=== PATIENT | female | born 1940 | race Caucasian/White ===

== ENCOUNTER → 2017-03-22 | Outpatient (CLI) | payer OTHER, BC ==
[~2017-03-22] MED LIST: AMBEREN; ASPIRIN EC81 M1 PO; CALCIUM PO; CALTRATE-600 W1 EACH PO; CLONAZEPAM 0.50.5 M1 PO; CLONAZEPAM 1 MG1 M1 PO; COLACE 100 MG100 MG PO; FISH OIL 1,0001 EAC5 PO; FISHOIL PO; FLEXERIL PO; FOLIC ACID0.4 MG PO; FOLIC ACID1 MG PO; HIZENTRA1 GM/5 ML SUBQ; HYDROCODON-ACE1 EAC5 PO; HYDROXYCHLOROQ200 M1 PO; LEVOTHYROXIN0.025 MG PO; LEVOTHYROXINE0.05 MG PO; LOMOTIL TABLET1 EACH; LOMOTIL TABLET1 EACH PO; LORATADINE PO; LOVASTAT20 PO; METHOTREXATE 22.5 M1 PO; MOBIC15 MG PO; MOBIC7.5 M1 PO; MOBIC7.5 MG PO; NORCO 5-325 TA1 EACH PO; NORFLEX100 MG PO; OCUVITE TABLET1 EAC1 PO; OMEPRAZOLE20 M2 PO; OXYCONTIN10 M1 PO; PREDNISONE 5 MG5 M1 PO; PREMARIN0.3 MG; RANITIDINE 150150 MG PO; RESTASIS1 EACH OPHTHALMIC; RHINOCORT AQUA8.6 GM; THERA-M CAPLET1 EACH PO; TOPROL XL25 MG PO; TRAMADOL 50 MG50 MG PO; TREXALL15 MG PO; ZYRTEC10 M2 PO
[2017-03-22 12:07] LABS: HEMATOCRIT 46.6 % (37.0-47.0); MCH 33.5 pg (26.0-34.0); MCHC 34.3 g/dL (28.0-37.0); MCV 97.5 fL (80.0-100.0); PLATELET COUNT 245 thou/uL (150-400); RBC 4.78 mil/uL (4.20-5.00); RDW 13.4 % (10.5-14.5)
[2017-03-22 12:08] LABS: MANUAL DIFF YES
[2017-03-22 12:19] LABS: ALBUMIN 4.2 g/dL (3.4-5.0); ALKALINE PHOSPHATASE 56 U/L (46-116); ANION GAP 10 mmol/L (7-16); BUN 19 mg/dL (7-18); CALCIUM 10.4 mg/dL (8.5-10.1); CHLORIDE 101 mmol/L (98-107); CO2 28 mmol/L (21-32); CREATININE 0.8 mg/dL (0.6-1.0); GLUCOSE 104 mg/dL (74-106); MAGNESIUM 2.1 mg/dL (1.8-2.4); POTASSIUM 4.5 mmol/L (3.5-5.1); SGOT 34 U/L (15-37); SGPT 45 U/L (30-65); SODIUM 139 mmol/L (136-145); TOTAL BILIRUBIN 0.6 mg/dL (<0.1-1.0); TOTAL PROTEIN 7.8 g/dL (6.4-8.2)
[2017-03-22 12:44] LABS: TSH 1.129 uIU/mL (0.358-3.740)
[2017-03-22 13:58] LABS: ABSOLUTE NEUTROPHILS 5.7 thou/uL (1.4-8.2); PLATELET ESTIMATE NORMAL; TOTAL CELL COUNT 100
== END ==
LOC: SEN 08:54
PROVIDERS: Internal Medicine Geriatric Medicine
DX: K52.9 Noninfective gastroenteritis and colitis, unspecified (principal); R29.6 Repeated falls; R26.9 Unspecified abnormalities of gait and mobility

== ENCOUNTER → 2017-06-28 | Outpatient (CLI) | payer OTHER, BC | LOC: RAD 10:43 | DX: R05 Cough (principal) ==

== ENCOUNTER → 2017-11-10 | Outpatient (CLI) | payer OTHER, BC | LOC: NUC 07:39 | DX: I20.9 Angina pectoris, unspecified (principal); R06.09 Other forms of dyspnea; I10 Essential (primary) hypertension ==

== ENCOUNTER 2019-06-20 23:08 | Emergency (ER) | payer OTHER, BC ==
[~2019-06-20] VITALS: Ht 154.9 cm; Wt 70.8 kg
[2019-06-21] MEDS ORDERED: FOLIC ACID1 MG PO (00:01)
[2019-06-21] MEDS ORDERED: PREDNISONE 5 MG5 M1 PO (00:02)
[2019-06-21] MEDS ORDERED: LISINOPRIL5 MG PO (00:02)
[2019-06-21] MEDS ORDERED: ZYRTEC10 M5 PO (00:05)
[2019-06-21] MEDS ORDERED: TIZANIDINE HCL 22 M1 PO (00:05)
[2019-06-21] MEDS ORDERED: AZATHIOPRINE50 MG PO (00:05)
[2019-06-21] MEDS ORDERED: SINGULAIR 10 MG10 M1 PO (00:05)
[2019-06-21] MEDS ORDERED: VITAMIN C500 MG PO (00:06)
[2019-06-21] MEDS ORDERED: CURCUMIN10 GM PO (00:06)
[2019-06-21] MEDS ORDERED: METHOTREXA25 MG/1 M4 SUBQ (00:07)
[2019-06-21] MEDS ORDERED: RESTASIS1 EACH OPHTHALMIC (00:07)
[2019-06-21 00:40] VITALS: BP 221/98
== END 2019-06-21 00:40 | disposition home or self-care (01) ==
LOC: ER 23:08
DX: M25.512 Pain in left shoulder (principal); R07.81 Pleurodynia; M85.80 Other specified disorders of bone density and structure, unspecified site; Z90.710 Acquired absence of both cervix and uterus; Z87.891 Personal history of nicotine dependence; Z90.49 Acquired absence of other specified parts of digestive tract

== ENCOUNTER 2020-07-23 20:17 | Emergency (ER) | payer OTHER, BC ==
[~2020-07-23] VITALS: Ht 152.4 cm; Wt 68.0 kg
--- NOTE | ~2020-07-23 | EMS ---
[address] [address] EMS Patient Care Report Name: ARTURO CONNOLLY Room #: REG RIGOBERTO Dean#: [id number] Admission: 07/23/20 Attend Phys: Discharge: Date of : 38 Report #: [id number] THIS REPORT FOR: //name// Report Transmitted: 07/23/2020 20:22 EMS Care Summary [facility] MED-ACT Incident [id number] @ 07/23/2020 19:26 Incident Location [address] [place] [address] Patient ANNY CATHLEEN Female, 79 Years 1940 Patient Address [address] [place] [address] Patient History Hypertension (HTN),Hypothyroidism, Patient Allergies No known allergies, Patient Medications Levothyroxine, Prednisone, Lisinopril, Chief Complaint wrist pain Disposition Transported No Lights/[place] Reason Falls Transported To [facility] Narrative Dispatched to a [facility] community for a 79 yr female with a complaint of falls. Arrived on scene to find the pt on the floor in her kitchen OPFD [address] [address] EMS Patient Care Report Name: ARTURO CONNOLLY Room #: REG Dianne#: [id number] Admission: 07/23/20 Attend Phys: Discharge: Date of : 38 Report #: [id number] personnel providing care. Pt states that she slipped and fell hitting the right side of her head on the counter and then injuring her right wrist trying to break her fall. Pt has some swelling and deformity to her right wrist, pt rates her pain a 9 out of 10 in her wrist. No swelling was noted on the side of the pt's head. Pt denies any loss of consciousness or further injury. Pt does not take any blood thinners. IV was placed and fentanyl was given for pain control. Pt was moved to a sitting position and a sling was placed to support pt's wrist. Pt was assisted to a standing position and then seated on the cot. Pt was placed in a position of comfort and secured. Monitored pt vitals through out transport. Additional 50 MCG of fentanyl (total of 100 MCG) given for pain control. Pt rates her pain a 5 out of 10 on arrival at the ED. Pt taken to room 5 on arrival at the ED, verbal report given to chief of staff doctor, pt vitals stable. Initial Vitals @19:40P: 67,R: 18,BP: 157/71,Pain: 8/10,GCS: 15,Temp: 97.4F,SpO2: 96,Revised Trauma: 12, @20:10P: 64,R: 18,BP: 154/84,Pain: 4/10,GCS: 15,SpO2: 96,Revised Trauma: 12, @20:00P: 64,R: 8,BP: 174/90,Pain: 4/10,GCS: 15,SpO2: 97,Revised Trauma: 10, Assessments @19:47MENTAL:Person Oriented,Time Oriented,Event Oriented,Place Oriented,SKIN:HEENT:Head/Face: No Abnormalities,LUNG SOUNDS:General: No Abnormalities,ABDOMEN:General: No Abnormalities,PELVIS//GI:No Abnormalities,EXTREMITIES:Left Arm: No Abnormalities,Right Arm: No Abnormalities,Left Leg: No Abnormalities,Right Leg: No Abnormalities,PULSE:NEURO:No Abnormalities, Impression Injury Procedures @19:48Fentanyl - 50 Micrograms (mcg) - Intravenous (IV)Response: Improved@19:42ALS AssessmentResponse: UnchangedSucceeded@19:44Saline Lock 10cc (20 ga) Site: Antecubital-LeftResponse: UnchangedSucceeded@20:01Fentanyl - 50 Micrograms (mcg) - Intravenous (IV)Response: Improved Timeline 19:25,Call Received 19:25,Psap Call 19:26,Dispatched 19:27,En Route 19:34,On Scene 19:38,At Patient 19:40,BP: 157/71 M,PULSE: 67,RR: 18 R,SPO2: 96 Ox,ETCO2: ,BG: ,PAIN: 8,GCS: 15, [address] [address] EMS Patient Care Report Name: ARTRUO CONNOLLY Room #: REG M.R.#: [id number] Admission: 07/23/20 Attend Phys: Discharge: Date of : 38 Report #: [id number] 19:42,ALS Assessment,Response: UnchangedSucceeded, 19:44,Saline Lock 10cc 20 ga Site: Antecubital-Left,Response: UnchangedSucceeded, 19:48,Fentanyl - 50 Micrograms (mcg) - Intravenous (IV),Response: Improved 20:00,BP: 174/90 M,PULSE: 64,RR: 8 R,SPO2: 97 Ox,ETCO2: ,BG: ,PAIN: 4,GCS: 15, 20:01,Fentanyl - 50 Micrograms (mcg) - Intravenous (IV),Response: Improved 20:03,Depart Scene 20:10,BP: 154/84 M,PULSE: 64,RR: 18 R,SPO2: 96 Ox,ETCO2: ,BG: ,PAIN: 4,GCS: 15, 20:12,At Destination 20:55,Call Closed Disclaimer v1.1 Copyright 2020 [employer] This EMS Care Summary contains data elements from the applicable legal record (which may be displayed differently). It is designed to provide pertinent information for the following purposes: continuity of care, clinical quality, and state data reporting. The complete legal record is available to ED staff and administrators of the receiving hospital in [employer] Patient Tracker. All data is provided "as is."
[~2020-07-23 20:17] MED LIST changes: +AZATHIOPRINE50 MG PO; +CURCUMIN10 GM PO; +LISINOPRIL5 MG PO; +METHOTREXA25 MG/1 M4 SUBQ; +SINGULAIR 10 MG10 M1 PO; +TIZANIDINE HCL 22 M1 PO; +VITAMIN C500 MG PO; +ZYRTEC10 M5 PO
[2020-07-23] MEDS ORDERED: LOMOTIL 2.5-0.01 TAB PO ×2 (20:33→20:41)
[2020-07-23] MEDS ORDERED: LEVO-T50 MCG PO (20:41)
[2020-07-23] MEDS ORDERED: FOLIC ACID1 MG PO (20:42)
[2020-07-23] MEDS ORDERED: FISH OIL 1,0001 EAC9 PO (20:42)
[2020-07-23] MEDS ORDERED: CALCIUM CITRAT1 EA16 PO (20:42)
[2020-07-23] MEDS ORDERED: UNICOMPLEX M TA1 TA1 PO (20:42)
[2020-07-23] MEDS ORDERED: LISINOPRIL5 MG PO (20:42)
[2020-07-23] MEDS ORDERED: PREDNISONE 5 MG5 M1 PO (20:43)
[2020-07-23] MEDS ORDERED: ZANAFLEX2 M1 PO (20:44)
[2020-07-23] MEDS ORDERED: VITAMIN C500 M2 PO (20:44)
[2020-07-23] MEDS ORDERED: PRILOSEC OTC20 MG PO (20:45)
[2020-07-23] MEDS ORDERED: CURCUMIN1 GM PO (20:46)
[2020-07-23] MEDS ORDERED: RESTASIS1 EACH OPHTHALMIC (20:46)
[2020-07-23] MEDS ORDERED: HIZENTRA10 GM/50 M SUBQ (20:47)
[2020-07-23] MEDS ORDERED: METHOTREXATE 22.5 M1 SUBQ (20:48)
[2020-07-23] MEDS ORDERED: NORCO5 PO (22:12)
[2020-07-23 22:37] VITALS: BP 151/65
== END 2020-07-23 22:38 | disposition home or self-care (01) ==
LOC: ER 20:17
DX: S52.501A Unspecified fracture of the lower end of right radius, initial encounter for closed fracture (principal); S00.03XA Contusion of scalp, initial encounter; Z90.49 Acquired absence of other specified parts of digestive tract; Z90.710 Acquired absence of both cervix and uterus; Z79.899 Other long term (current) drug therapy; Z87.891 Personal history of nicotine dependence; Z91.048 Other nonmedicinal substance allergy status; W01.0XXA Fall on same level from slipping, tripping and stumbling without subsequent striking against object, initial encounter; Y93.89 Activity, other specified; Y92.89 Other specified places as the place of occurrence of the external cause; Y99.8 Other external cause status

== ENCOUNTER → 2020-07-24 | Outpatient (CLI) | payer OTHER, BC ==
[~2020-07-24] MED LIST changes: +CALCIUM CITRAT1 EA16 PO; +CURCUMIN1 GM PO; +FISH OIL 1,0001 EAC9 PO; +HIZENTRA10 GM/50 M SUBQ; +LEVO-T50 MCG PO; +LOMOTIL 2.5-0.01 TAB PO; +NORCO5 PO; +PRILOSEC OTC20 MG PO; +RASUVO 3030 MG/0.6 SUBQ; +UNICOMPLEX M TA1 TA1 PO; +VITAMIN C500 M2 PO; +ZANAFLEX2 M1 PO
== END ==
LOC: LAB 10:37
PROVIDERS: Student in an Organized Health Care Education/Training Program; ATTEND Orthopaedic Surgery
DX: Z01.812 Encounter for preprocedural laboratory examination (principal); Z20.822 Contact with and (suspected) exposure to COVID-19

== ENCOUNTER 2020-07-25 10:09 | Inpatient (IN) | payer OTHER, BC ==
[~2020-07-25] VITALS: Ht 152.4 cm; Wt 70.3 kg
[2020-07-25 11:08] VITALS: BP 145/64
--- NOTE | 2020-07-25 14:10 | H ---
[facility] [place] [address] HISTORY AND PHYSICAL Name: ARTURO CONNOLLY Room #: 150-7 [facility]..#: [id number] Admission: 07/25/20 Attend Phys: Tim Dexter MD Discharge: Date of : 38 Report #: [id number] THIS REPORT FOR: cc: Dinh Matt MD, Neal A. MD Clymer,Tim Orellana MD ~ DATE OF SERVICE: 07/25/2020 CHIEF COMPLAINT: Right distal radius fracture. HISTORY OF PRESENT ILLNESS: This frail 79-year-old female with a number of chronic medical and cardiac problems, has poor balance and is quite unsteady and requires a walker and assistance. She has had several falls and fell again 2 days ago injuring the right wrist. X-rays at the Emergency Department confirmed a complex comminuted fracture of the right distal radius with significant displacement. We have discussed treatment options with the patient and her family. The patient and daughters understand that she probably needs to be in more of an assisted living Center as she is really not managing well in her current independent living area. They also note that she really needs to have use of the right hand and wrist on a walker for balance and safety. Given this, they prefer to go ahead with surgical stabilization of the right distal radius fracture. They understand the potential risks as well as benefits, particularly given her advanced age and other general medical problems. REVIEW OF SYSTEMS: Notable for a history of previous cardiac disease with periodic atrial tachycardia. She also has a long history of rheumatoid arthritis and Sjogren syndrome. She has some chronic bladder issues, which require chronic treatment. She also has some progressive neurologic deficit with the balance problems and frequent falling. On physical exam, she is quite frail, but seems to be alert and seems to understand the current situation. She is accompanied by her daughter. She denies any significant symptoms regarding the head, neck, back or hips. She seems to have satisfactory movement of the neck and back without discomfort. The lungs are clear and cardiac exam reveals a regular rate and rhythm without significant murmurs. The abdomen is protuberant, soft and nontender. The left upper extremity reveals good movement at the shoulder, elbow and wrist without discomfort. The right upper extremity is obviously uncomfortable with moderate deformity at the wrist and discomfort palpation consistent with a distal radius fracture. The skin is intact. The pelvis and hips demonstrate satisfactory alignment, range of motion without discomfort. The lower extremities reveal good alignment, range of motion with satisfactory strength and without discomfort. X-rays of the right wrist in the Emergency Department reveal a comminuted complex fracture of the distal [place] [address] HISTORY AND PHYSICAL Name: ARTURO CONNOLLY Room #: 150-7 [facility] M.R.#: [id number] Admission: 07/25/20 Attend Phys: Tim Dexter MD Discharge: Date of : 38 Report #: [id number] IMPRESSION: Complex comminuted fracture, right distal radius. I have discussed with the patient and her daughter the nature of the injury and treatment options. They prefer to go ahead with surgical repair and also note that she will probably require hospital admission and some director social welfare assistance to make arrangements for a new living situation as she really cannot return to her independent living setting given the current circumstances, family is already trying to make arrangements for a more suitable extended care facility. <ELECTRONICALLY SIGNED> By: Tim Dexter MD 07/25/20 1410 1249 1322 Tim Dexter MD /nt
--- NOTE | 2020-07-25 14:23 | EKG ---
[address] [address] ELECTROCARDIOGRAM REPORT Name: ARTURO CONNOLLY Room #: 150-7 [facility]..#: [id number] Admission: 07/25/20 Attend Phys: Tim Dexter MD Discharge: Date of : 38 Report #: [id number] [facility] Test Date: 2020-07-25 Test Time: 10:42:54 Pat Name: ARTURO CONNOLLY Department: Room: 150 Gender: F Junior Staff Accountant: FABY : 1940 Requested By: Tim Dexter Order Number: [id number] : Francisco J Madrid Measurements Intervals Fields Rate: 66 P: 51 TX: 163 QRS: -12 QRSD: 89 T: 21 QT: 411 QTc: 431 Interpretive Statements Sinus rhythm Compared to ECG 03/08/2013 10:54:11 No significant changes Electronically Signed On 07-25-2020 14:23:38 CDT by Francisco J Madrid [email or web address] <ELECTRONICALLY SIGNED> By: Francisco J Madrid MD, [facility] 07/25/20 1423 1042 41 Francisco J Madrid MD, FACC /EPI
--- NOTE | 2020-07-25 16:59 | O ---
[facility] [place] [address] OPERATIVE REPORT Name: ARTURO CONNOLLY Room #: 150-7 [facility]..#: [id number] Admission: 07/25/20 Attend Phys: Tim Dexter MD Discharge: Date of : 38 Report #: [id number] THIS REPORT FOR: cc: Dinh Matt MD, Neal A. MD Clymer,Tim Orellana MD ~ DATE OF SERVICE: 07/25/2020 PREOPERATIVE DIAGNOSIS: Complex comminuted fracture, right distal radius. POSTOPERATIVE DIAGNOSIS: Complex comminuted fracture, right distal radius. PROCEDURE: Open reduction and internal fixation, right distal radius fracture. SURGEON: Tim Dexter MD INDICATIONS: This frail 79-year-old female with a number of medical problems and balance issues, fell injuring the right wrist. X-rays confirm a complex comminuted fracture of the distal radius. The patient and family have decided to go ahead with surgical repair. DESCRIPTION OF PROCEDURE: The patient was taken to the operating room where she was placed under general anesthesia. Prophylactic intravenous antibiotics were administered. The right arm and hand were meticulously prepped and draped. The arm was exsanguinated with an Esmarch bandage and an upper arm tourniquet was applied and inflated to 250 mmHg. A volar longitudinal skin incision was made and carried through subcutaneous tissues and the pronator quadratus was elevated from the volar aspect of the distal radius. Neurovascular structures were protected. The comminuted fracture distal radius was gently reduced with longitudinal traction and direct pressure. Satisfactory alignment was established. An Acumed volar locking plate was then applied with 5 distal locking screws and 2 proximal screws and the plate. C-arm views were used to confirm good placement. The fracture seems to be in good position and screw placement appears to be satisfactory. The wound was copiously irrigated. The tourniquet was deflated. Good hemostasis was established. The deeper tissues were closed with 2-0 Monocryl. The more superficial tissues were also closed with 2-0 Monocryl. The skin was closed with 4-0 Prolene sutures and Steri-Strips. A sterile dressing was applied. A plaster splint was placed protecting the wrist in neutral position. The patient was then awakened and returned to recovery room in good condition. I suspect she will require some period of hospital stay as I think she is really not able to go back to her [address] [address] OPERATIVE REPORT Name: ARTURO CONNOLLY Room #: 150-7 [facility]..#: [id number] Admission: 07/25/20 Attend Phys: Tim Dexter MD Discharge: Date of : 38 Report #: [id number] former independent living setting. She will probably need transfer to some sort of an extended care facility until she has better use of the wrist and hand. <ELECTRONICALLY SIGNED> By: Tim Dexter MD 07/25/20 1659 1407 1454 Tim Dexter MD /nt
[2020-07-25 17:30] VITALS: BP 147/73
--- NOTE | 2020-07-25 18:45 | NUR ---
ASSUMED PT CARE THIS AM FROM PACU. PT IS ALERT & ORIENTED X4. PT HAS IV ON L WRIST SALINE LOCKED. PT HAS SURGERY TODAY - ORIF R DISTAL RADIUS. PT IS UNSTEADY. PT USES BEDSIDE COMMODE. PT HAS ASPIRATED FOOD/DRINK IN THE PAST AND NEEDED TO SIT UP STRAIGHT WHEN EATING AND DRINKING AND ELEVATE HOB. PT DAUGHTER AT THE BEDSIDE. DOCUMENTED ADMISSION SYSTEM ASSESSMENT, EDUCATION, HISRTORY AND PATIENT BELONGINGS. PT ON THE BED, SIDE RAILS UP, CALL LIGHT WITHIN REACH. FOLLOW POC. ENDORSE NIGHT NURSE.
[2020-07-25 22:00] VITALS: BP 138/76
--- NOTE | 2020-07-26 04:50 | NUR ---
ASSUMED CARE OF PT AT 1900. PT IS A/O X4 AND IS UP WITH ASSISTANCE TO THE BSC. ROOM AIR. VSS. DRSG TO RIGHT WRIST IS C/D/I. PT REFUSES TO WEAR THE SLING IMMOBILIZER STATING IT DOESN'T HELP HER ARM. FILLED ICE PACK AND PT DOES NOT KEEP IN ON HER WRIST. TRIED EDUCATING PT ON THE IMPORTANCE BUT PT STILL REFUSES. PLEASANT AND IS OTHERWISE COOPERATIVE WITH CARES. SCDS AND FALL PRECAUTIONS IN PLACE, CALL LIGHT IS WITHIN REACH. PT CALLS OUT APPROPRIATELY. WILL CONTINUE TO MONITOR.
[2020-07-26 05:18] LABS: ABSOLUTE NEUTROPHILS 7.8 thou/uL (1.4-8.2); BASOPHILS 0.1 % (0.0-2.0); EOSINOPHILS 0.1 % (0.0-3.0); HEMATOCRIT 34.7 % (37.0-47.0); HEMOGLOBIN 11.9 gm/dL (12.0-15.0); LYMPHOCYTES 7.5 % (24.0-44.0); MCH 33.9 pg (26.0-34.0); MCHC 34.2 g/dL (28.0-37.0); MCV 99.2 fL (80.0-100.0); MONOCYTES 8.5 % (1.0-8.0); PLATELET COUNT 173 thou/uL (150-400); POLYS 83.8 % (36.0-66.0); RDW 13.4 % (10.5-14.5); WBC 9.3 thou/uL (4.0-11.0)
[2020-07-26 05:27] LABS: CALCIUM 8.6 mg/dL (8.5-10.1); CREATININE 0.6 mg/dL (0.6-1.0); MAGNESIUM 1.8 mg/dL (1.8-2.4); POTASSIUM 4.1 mmol/L (3.5-5.1)
[2020-07-26 08:30] VITALS: BP 143/67
[2020-07-26 15:45] VITALS: BP 145/75
--- NOTE | 2020-07-26 18:14 | NUR ---
ASSUMED PT CARE AROUND 0800. [PT ALERT X ORIENTED X 4. ON ROOM AIR. FALL PRECAUTION IN PLACE. CALL LUGHT IN REACH WILL CONTINUE TO MONITOR. VSS. PT DAUGHTER IN THE ROOM
[2020-07-26 19:23] VITALS: BP 144/71
--- NOTE | 2020-07-27 03:05 | NUR ---
Assumed pt care at 1900. A/OX4,VSS. Up with AX1,RW/GB to bathroom,voiding per BSC @ NOC.C/o pain to right wrist,slightly swollen and pt c/o tightness encouraged to keep moving her fingers. LOP 10/09,ice pack provided frequently with some relief reported. CMS intact. Soft cast in placc,refuses to use the sling. Fall precautions in place,calls approp for help.
[2020-07-27 11:41] VITALS: BP 130/82
[2020-07-27 14:19] VITALS: BP 141/69
--- NOTE | 2020-07-27 14:33 | NUR ---
ASSUMED PT CARE THIS AM. PT IS ALERT & ORIENTED X4. PT HAS IV SITE ON L WRIST 20 GAUGE SALINE LOCKED. PT IS UP & ASSIST X1, USES BEDSIDE COMMODE, WALKER AND GAITBELT. PT ON ROOM AIR. PT LAST BM WAS 07/23. INFORMED DR SANCHEZ AND GIVEN SUPPOSITORY ORDERED. HAD 3 BM AND VOIDED TODAY. PT DAUGHTER AT THE BEDSIDE. PLACED AN ORDER FOR CS CONSULT FOR SNIFF PLACEMENT & PT DAUGHTER WANTED TO TALK TO CS TREATMENT TECHNICIAN. LEFT PT DAUGHTER NUMBER ON CS CONSULT ORDER. PT ON THE BED SLEEPING, BED ON THE LOWEST POSITION, CALL LIGHT WITHIN REACH. WILL CONTINUE TO MONITOR. FOLLOW POC.
[2020-07-27 16:16] VITALS: BP 146/63
[2020-07-27 20:34] VITALS: BP 128/67
--- NOTE | 2020-07-28 02:13 | NUR ---
PT AOX4. PT REPORTS 3/10 PAIN IN RIGHT WRIST. PT RECEIVING PRN PO APAP Q4HR WITH PRN PO NORCO Q4HR AVAILABLE. PT EXPRESSES RELUCTANCE WITH TAKING NORCO. PT DENIES SOB WHILE ON ROOM AIR. PT TOLERATING PO INTAKE OF FLUIDS AND REGULAR DIET WITHOUT ISSUE. PT WITHOUT NAUSEA OR EMESIS. PT AMBULATING WITH X1 ASSIST AND GAIT BELT TO BEDISDE COMMODE, RESTING IN BED OTHERWISE. FREQUENT REPOSITIONING ENCOURAGED WHILE IN BED. PT NOTED TO INDEPENDENTLY SHIFT SLIGHTLY, REFUSING REPOSITIONING ASSISTANCE. PT REPORTS NUMBNESS IN RIGHT THUMB AND INDEX FINGER, CAPILLARY REFILL LESS THAN 3SEC IN ALL EXTREMITIES. ORTHO SOFT KERLIX WITH JOSÉ ANTONIO WRAP IN PLACE, REMAINS CLEAN, DRY AND INTACT. PT NOTED TO MOBILIZE FINGERS TO LEFT HAND WITHOUT INCREASED PAIN OR ISSUE. PT ENCOURAGED TO NOTIFY STAFF FOR ALL NEEDS, CALL LIGHT WITHIN REACH, BED ALARM ON, BED LOCKED IN LOWEST POSITION, ROOM REMAINS NEAR NURSES STATION, FREQUENT MONITORING WILL CONTINUE.
[2020-07-28 08:00] VITALS: BP 145/88
--- NOTE | 2020-07-28 11:47 | NUR ---
ASSESSMENT: CM REVIEWED CHART AND SPOKE WITH PATIENT WELL HER DAUGHTERS KRISTI AND ISABELLA. PT IS FROM [place] [facility] AND HAD A FALL WITH RIGHT RADIUS FX. PT IS NEEDING POST ACUTE CARE. CM SPOKE WITH ISABELLA AND KRISTI ([facility]) WHO ARE THE DAUGHTERS OF PATIENT AND THEY STATE THAT KRISTI LIVES A BLOCK AWAY FROM [facility] AND THEY WOULD LIKE A REFERRAL THERE PT IS FAMILIAR WITH WHAT THE COMMUNITY LOOKS LIKE [facility]. CM FAXED REFERRALS. [facility] HAS BEDS OPEN TODAY AND CM SPOKE WITH THE [facility] AND THEY DO NOT HAVE A BED UNTIL TUESDAY. PT AND FAMILY WANT TO PROCEED WITH [facility]. CM SPOKE WITH RASHAAD CARTER AT [facility] AND REPORTS SINCE PATIENT HAS BEEN FULLY VACCINATED THEY DO NOT REQUIRE ANOTHER COVID TEST PRIOR TO ACCEPTING HER. CM INFORMED THEM PATIENT WAS VACCINATED WITH PFIZER ON MAY 06 AND MAY 27. NEHEMIAH LEONGA REQUESTING THAT FAMILY BRING IN HER HIZENTRA MEDICATION. DAUGHTER REPORTING THAT HIS IS NOT AN ISSUE AND THEY CAN BRING IT IN FOR PATIENT. [facility] NOTIFIED ATTENDING THAT [facility] CAN ACCEPT TODAY. AWAITING ON FINAL ORDERS AT THIS TIME.
--- NOTE | 2020-07-28 14:04 | NUR ---
ASSUMED PT CARE AROUND 0700. PT ALERT X ORIENTED X 4. ON ROOM AIR. 1 PERSON ASSIST TO BED SIDE COMMODE.IV LEFT WRIST. ON REGULAR DIET. EATING AND DRINKING WELL. HAD A BM TODAY, REFUSED STOOL SOFTNER ABD MIRALAX. FALL PRECAUTION IN PLACE. CALL LIGHT IN REACH. WILL CALL APPROPRIATELY. PT DAUGHTER IN THE ROOM TODAY MORNING. PT GETTING DISCHARGED TO [facility]. EXPECTED TO GO AROUND 1500. WILL CONTINUE TO MONITOR.
== END 2020-07-28 17:29 | DRG 512 ==
LOC: OR 10:09 → TBA 10:09 → OR 15:18 → 4S 17:32
PROVIDERS: ADMIT Orthopaedic Surgery; ATTEND Orthopaedic Surgery
PROC: 0PSH04Z Reposition Right Radius with Internal Fixation Device, Open Approach (ICD-10-PCS; principal; 2020-07-25)
DX: S52.501A Unspecified fracture of the lower end of right radius, initial encounter for closed fracture (principal); W18.39XA Other fall on same level, initial encounter; M35.00 Sjogren syndrome, unspecified; M85.80 Other specified disorders of bone density and structure, unspecified site; G25.81 Restless legs syndrome; K21.9 Gastro-esophageal reflux disease without esophagitis; E03.9 Hypothyroidism, unspecified; I10 Essential (primary) hypertension; M19.90 Unspecified osteoarthritis, unspecified site; K58.9 Irritable bowel syndrome, unspecified; G89.29 Other chronic pain; M54.9 Dorsalgia, unspecified; M06.9 Rheumatoid arthritis, unspecified; Y93.89 Activity, other specified; Y92.89 Other specified places as the place of occurrence of the external cause; Z98.42 Cataract extraction status, left eye; Z98.41 Cataract extraction status, right eye; Y99.8 Other external cause status; Z90.49 Acquired absence of other specified parts of digestive tract; Z90.710 Acquired absence of both cervix and uterus
CPT/HCPCS: 10102; 50010; 50101; 50386; 56525; 56526; 57091; 57178; 58122; 58125; 58127; 58538; 62110; 62900; 70005